=== PATIENT | male | born 2005 | race Caucasian/White ===

== ENCOUNTER 2023-12-23 01:38 | Emergency (ER) | payer MEDICAID, OTHER ==
[~2023-12-23] VITALS: Ht 170.2 cm; Wt 63.5 kg
[2023-12-23 02:57] VITALS: BP 127/67; TEMP 98.4; O2SAT 99
[2023-12-23] MEDS ORDERED: [UNRECOGNIZED DRUG - CODE] PO (03:36)
== END 2023-12-23 04:01 | disposition home or self-care (01) ==
LOC: ER 01:38
DX: F41.1 Generalized anxiety disorder (principal); Z76.0 Encounter for issue of repeat prescription; Z60.2 Problems related to living alone

== ENCOUNTER 2024-11-26 01:11 | Emergency (ER) | payer MEDICAID ==
[~2024-11-26] VITALS: Ht 162.6 cm; Wt 77.1 kg
[~2024-11-26 01:11] MED LIST: [UNRECOGNIZED DRUG - CODE] PO
[2024-11-26 01:47] VITALS: BP 139/74; TEMP 98; O2SAT 99
== END 2024-11-26 02:08 | disposition home or self-care (01) ==
LOC: ER 01:13
DX: F41.9 Anxiety disorder, unspecified (principal); Z76.0 Encounter for issue of repeat prescription; Z79.899 Other long term (current) drug therapy

== ENCOUNTER 2025-04-21 11:42 | Emergency (ER) | payer MEDICAID ==
[~2025-04-21] VITALS: Ht 172.7 cm; Wt 68.0 kg
[2025-04-21 11:53] VITALS: BP 119/80; TEMP 98.4; O2SAT 97
[2025-04-21] MEDS ORDERED: PREG300C PO (12:30)
== END 2025-04-21 13:13 | disposition home or self-care (01) ==
LOC: ER 11:48
DX: F41.1 Generalized anxiety disorder (principal); Z76.0 Encounter for issue of repeat prescription; Z79.899 Other long term (current) drug therapy; Z60.2 Problems related to living alone